=== PATIENT | male | born 1945 | race Caucasian/White ===

== ENCOUNTER → 2021-01-15 | Outpatient (CLI) | payer OTHER ==
--- NOTE | 2021-01-16 10:02 | ECHO ---
DATE OF PROCEDURE: 01/15/2021 Age: 75 Gender: Male Height: 160 cm Weight: 75 kg REFERRING PHYSICIAN: Farooq Kahn M.D. INDICATION: Chronic ischemic heart disease. MEASUREMENTS: IVS 0.9 cm LV 3.7 cm LVPW 0.8 cm LA 3.2 cm Aorta 2.5 cm RV 2.6 cm DOPPLER MEASUREMENT Mitral E wave velocity 79 Mitral A wave 104 E prime septal 6.9 E prime lateral 6.5 FINDINGS: This study is of fair technical quality with challenging visualization. Underlying sinus rhythm. Left ventricle is normal size. I do not appreciate any distinct wall motion abnormality, but it could have been easily missed based on quality of the images, but overall EF is normal or near normal, I estimate it around 60%. Right ventricle also appears to have normal size and systolic function. Both atria appear normal. Aortic valve is tricuspid, it is mildly sclerotic, but mobility is preserved. Mitral, tricuspid, and pulmonic valves appear normal. No pericardial effusion is noted. Inferior vena cava was not visualized. Aortic root is normal. Aortic arch and abdominal aorta were not well seen. Doppler interrogation reveals competent aortic valve. There is also well competent mitral and pulmonic valve. Tricuspid valve exhibits trace insufficiency. Calculated pulmonary artery pressure is within normal limits. Mitral inflow pattern and tissue Doppler imaging of the mitral annulus revealed grade 1 diastolic dysfunction. CONCLUSIONS: 1. Study is of fair technical quality, underlying sinus rhythm. 2. Normal LV size with grossly preserved LV systolic function and grade 1 diastolic dysfunction. 3. No hemodynamically significant valvular disease. 4. Unable to estimate central venous pressure, but likely normal pulmonary artery pressure. [facility]
== END ==
LOC: M CARPUL 12:02
PROVIDERS: ATTEND Internal Medicine
DX: I25.10 Atherosclerotic heart disease of native coronary artery without angina pectoris (principal)